=== PATIENT | male | born 1985 | race Caucasian/White ===

== ENCOUNTER → 2019-01-02 | Outpatient (RCR) | payer OTHER | LOC: M PT 12-15 11:05 | PROVIDERS: ATTEND Emergency Medicine | DX: M77.32 Calcaneal spur, left foot (principal) ==

== ENCOUNTER 2019-01-25 14:45 | Outpatient (RCR) | payer OTHER | END 2019-02-02 | LOC: M PT 14:45 | PROVIDERS: ATTEND Emergency Medicine | DX: M79.672 Pain in left foot (principal) ==

== ENCOUNTER → 2022-10-22 | Outpatient (REF) | payer OTHER ==
[2022-10-22 13:26] LABS: SEMEN APPEARANCE OPAQUE (OPAQUE); SEMEN VISCOSITY LIQUID (LIQUID); SEMEN pH 8.5 (7.0-8.0); WBC CONCENTRATION >1 M/ml (<=1 M/ml)
[2022-10-22 13:27] LABS: SPERM CONCENTRATION 7.4 M/ml (>=15.0)
== END ==
LOC: M LAB REF 12:29
PROVIDERS: ATTEND Urology
DX: Z98.52 Vasectomy status (principal)